=== PATIENT | male | born 1980 | race Caucasian/White ===

== ENCOUNTER 2018-03-27 04:12 | Emergency (ER) | payer MEDICAID, OTHER ==
[2018-03-27] MEDS: SILVER NITRATE SWAB TOP (05:09)
== END 2018-03-27 05:24 | disposition home or self-care (01) ==
LOC: FTE 04:12
DX: R58 Hemorrhage, not elsewhere classified (principal)
CPT/HCPCS: 99282; Z7502

== ENCOUNTER 2018-04-25 02:51 | Inpatient (IN) | payer MEDICAID ==
[2018-04-25 04:06] LABS: ADD MAN DIFF? NO
[2018-04-25 04:07] LABS: WHITE BLOOD COUNT 13.3 10^3/ul (4.8-10.8)
[2018-04-25 04:07] LABS: BASOPHIL # 0.1 10^3/ul (0.0-0.1); BASOPHILS % 0.5 % (0.0-2.0); HEMATOCRIT 28.3 % (42.0-52.0); HEMOGLOBIN 9.7 g/dl (14.0-18.0); LYMPHOCYTES # 1.6 10^3/ul (0.8-2.9); LYMPHOCYTES % 12.3 % (15.0-51.0); MEAN CORPUSCULAR HEMOGLOBIN 32.2 pg (29.0-33.0); MEAN CORPUSCULAR HGB CONC 34.3 g/dl (32.0-37.0); MEAN PLATELET VOLUME 11.7 fl (7.4-10.4); MONOCYTE # 1.2 10^3/ul (0.3-0.9); MONOCYTES % 8.9 % (0.0-11.0); NEUTROPHIL # 10.4 10^3/ul (1.6-7.5); NEUTROPHILS % 77.8 % (39.0-77.0); PLATELET COUNT 101 10^3/UL (140-415); POSITIVE DIFF @See below; RED BLOOD COUNT 3.01 10^6/ul (4.70-6.10); RED CELL DISTRIBUTION WIDTH 15.9 % (11.5-14.5)
[2018-04-25 04:27] LABS: ALANINE AMINOTRANSFERASE 42 IU/L (13-69); ALBUMIN 3.2 g/dl (3.3-4.9); ALBUMIN/GLOBULIN RATIO 0.94; ALKALINE PHOSPHATASE 116 IU/L (42-121); ANION GAP 9 (5-13); ASPARTATE AMINO TRANSFERASE 71 IU/L (15-46); BILIRUBIN,INDIRECT 1.2 mg/dl (0-1.1); BILIRUBIN,TOTAL 1.2 mg/dl (0.2-1.3); BLOOD UREA NITROGEN 24 mg/dl (7-20); CALCIUM 8.2 mg/dl (8.4-10.2); CARBON DIOXIDE 25 mmol/L (21-31); CHLORIDE 107 mmol/L (97-110); CREATININE 0.47 mg/dl (0.61-1.24); Estimated GFR > 60 mL/min (>60); GLUCOSE 144 mg/dl (70-220); INR 1.31; PROTIME 16.5 Sec (11.9-14.9); PT RATIO 1.3; SODIUM 141 mmol/L (135-144); TOTAL PROTEIN 6.6 g/dl (6.1-8.1)
[2018-04-25] MEDS: PANTOPRAZOLE 40 MG INJ IV ×2 (04:27→05:25)
[2018-04-25] MEDS: ONDANSETRON 4 MG INJ IV ×3 (04:27→06:16)
[2018-04-25 04:28] LABS: PARTIAL THROMBOPLASTIN TIME 35.5 Sec (23.0-35.0)
[2018-04-25] MEDS: CEFTRIAXONE 1 GM/50 ML (PMX) 50 ML IVPB (05:25)
[2018-04-25] MEDS ORDERED: ACETAMINOPHEN 650 MG SUPP PR (05:30)
[2018-04-25] MEDS ORDERED: morphine 2 MG INJ IV (05:30)
[2018-04-25] MEDS: OCTREOTIDE 50 MCG in SOD CHLORIDE 0.9% 25 ML IVPB (05:56)
[2018-04-25] MEDS: PANTOPRAZOLE IV 80 MG in SOD CHLORIDE 0.9% 100 ML IV ×2 (05:56→15:31)
[2018-04-25] MEDS: OCTREOTIDE 500 MCG in SOD CHLORIDE 0.9% 49 ML IV (06:05)
[2018-04-25] MEDS: SOD CHLORIDE 0.9% 500 ML IV ×2 (07:30→08:30)
[2018-04-25] MEDS: SOD CHLORIDE 0.9% 1,000 ML IV (08:30)
[2018-04-25] MEDS ORDERED: THIAMINE 200 MG INJ IM (09:00)
[2018-04-25 09:03] LABS: ADD MAN DIFF? NO
[2018-04-25 09:05] LABS: BASOPHIL # 0.1 10^3/ul (0.0-0.1); BASOPHILS % 0.4 % (0.0-2.0); HEMATOCRIT 25.5 % (42.0-52.0); HEMOGLOBIN 8.5 g/dl (14.0-18.0); LYMPHOCYTES % 11.7 % (15.0-51.0); MEAN CORPUSCULAR HGB CONC 33.3 g/dl (32.0-37.0); MEAN CORPUSCULAR VOLUME 95.9 fl (82.0-101.0); MEAN PLATELET VOLUME 12.5 fl (7.4-10.4); MONOCYTE # 1.2 10^3/ul (0.3-0.9); MONOCYTES % 7.3 % (0.0-11.0); NEUTROPHIL # 13.4 10^3/ul (1.6-7.5); NEUTROPHILS % 80.1 % (39.0-77.0); PLATELET COUNT 104 10^3/UL (140-415); RED BLOOD COUNT 2.66 10^6/ul (4.70-6.10); RED CELL DISTRIBUTION WIDTH 16.2 % (11.5-14.5)
[2018-04-25 09:05] LABS: WHITE BLOOD COUNT 16.8 10^3/ul (4.8-10.8)
[2018-04-25 09:08] LABS: HAAIG REFLEX REFLEX FILED
[2018-04-25 09:52] LABS: ETHANOL < 10.0 mg/dl (0-0)
[2018-04-25 12:20] LABS: HEPATITIS B SURFACE ANTIGEN NEGATIVE (NEGATIVE)
[2018-04-25 12:30] LABS: HIV 1&2 ANTIBODY NEGATIVE (NEGATIVE)
[2018-04-25 12:35] LABS: HEPATITIS B SURFACE ANTIBODY NEGATIVE (NEGATIVE)
[2018-04-25 12:37] LABS: HEPATITIS B CORE ANTIBODY NEGATIVE (NEGATIVE); HEPATITIS C VIRAL ANTIBODY NEGATIVE (NEGATIVE)
[2018-04-25 14:38] LABS: ADD MAN DIFF? NO
[2018-04-25 14:40] LABS: ABNORMAL IP MESSAGE 1; BASOPHIL # 0.1 10^3/ul (0.0-0.1); BASOPHILS % 0.4 % (0.0-2.0); EOSINOPHILS % 0.1 % (0.0-7.0); HEMATOCRIT 24.4 % (42.0-52.0); HEMOGLOBIN 8.1 g/dl (14.0-18.0); LYMPHOCYTES # 2.6 10^3/ul (0.8-2.9); LYMPHOCYTES % 15.7 % (15.0-51.0); MEAN CORPUSCULAR HEMOGLOBIN 31.8 pg (29.0-33.0); MEAN CORPUSCULAR HGB CONC 33.2 g/dl (32.0-37.0); MEAN CORPUSCULAR VOLUME 95.7 fl (82.0-101.0); MEAN PLATELET VOLUME 12.6 fl (7.4-10.4); NEUTROPHIL # 11.6 10^3/ul (1.6-7.5); NEUTROPHILS % 71.4 % (39.0-77.0); PLATELET COUNT 102 10^3/UL (140-415); POSITIVE DIFF @See below; RED BLOOD COUNT 2.55 10^6/ul (4.70-6.10); RED CELL DISTRIBUTION WIDTH 16.3 % (11.5-14.5)
[2018-04-25 14:40] LABS: WHITE BLOOD COUNT 16.3 10^3/ul (4.8-10.8)
[2018-04-25] MEDS: OCTREOTIDE 1 MG in DEXTROSE 5% 95 ML IV (15:30)
[2018-04-25] MEDS ORDERED: LIDOCAINE 100 MG SYRINGE (15:53)
[2018-04-25] MEDS ORDERED: FENTAnyl 50 MCG/ML VIAL (15:53)
[2018-04-25] MEDS ORDERED: PROPOFOL 40 ML (15:53)
[2018-04-25 17:31] LABS: TYPE AND SCREEN 1
[2018-04-25] MEDS: MULTIVITAMINS 10 ML, THIAMINE 100 MG, FOLIC ACID 1 MG in SOD CHLORIDE 0.9% 1,000 ML IVPB (18:28)
[2018-04-25] MEDS: SUCRALFATE 1 GM TAB PO ×2 (18:30→20:10)
[2018-04-25] MEDS: PHYTONADIONE 10 MG in DEXTROSE 5% 50 ML IVPB (19:09)
[2018-04-25 19:38] LABS: HEMATOCRIT 22.2 % (42.0-52.0); HEMOGLOBIN 7.5 g/dl (14.0-18.0)
[2018-04-25] MEDS: DEXTROSE 5%-0.45% NACL 1,000 ML IV (23:00)
[2018-04-26] MEDS: PANTOPRAZOLE IV 80 MG in SOD CHLORIDE 0.9% 100 ML IV ×3 (00:42→21:30)
[2018-04-26 00:51] LABS: WHITE BLOOD COUNT 12.8 10^3/ul (4.8-10.8)
[2018-04-26 00:51] LABS: ABNORMAL IP MESSAGE 1; HEMATOCRIT 20.7 % (42.0-52.0); MEAN CORPUSCULAR HEMOGLOBIN 32.7 pg (29.0-33.0); MEAN CORPUSCULAR HGB CONC 33.3 g/dl (32.0-37.0); MEAN CORPUSCULAR VOLUME 98.1 fl (82.0-101.0); MEAN PLATELET VOLUME 11.9 fl (7.4-10.4); PLATELET COUNT 95 10^3/UL (140-415); POSITIVE DIFF @See below; RED BLOOD COUNT 2.11 10^6/ul (4.70-6.10); RED CELL DISTRIBUTION WIDTH 16.8 % (11.5-14.5)
[2018-04-26 00:54] LABS: ADD MAN DIFF? YES; HEMOGLOBIN 6.9 g/dl (14.0-18.0)
[2018-04-26] MEDS: SOD CHLORIDE 0.9% 1,000 ML IV ×2 (01:10→21:10)
[2018-04-26 01:28] LABS: ANISOCYTOSIS 1+ (0-0); BAND NEUTROPHILS % (M) 8 % (0-4); BASOPHIL #M 0.1 10^3/ul (0.0-0.0); BASOPHILS % (M) 1 % (0-2); GIANT THROMBO% (M) 1 % (0-0); LYMPHOCYTES #M 2.6 10^3/ul (0.8-2.9); LYMPHOCYTES % (M) 21 % (15-51); MONOCYTE #M 0.3 10^3/ul (0.3-0.9); MONOCYTES % (M) 3 % (0-11); MYELOCYTES #M 0.1 10^3/ul (0.0-0.0); MYELOCYTES % (M) 1 % (0-0); PLATELET ESTIMATE DECREASED; POLYCHROMASIA 2+ (0-0); PROMYELOCYTES #M 0.1 10^3/ul (0-0); PROMYELOCYTES % (M) 1 % (0-0); SEG NEUT #M 8.4 10^3/ul (1.6-7.5); SEGMENTED NEUTROPHILS (M) % 65 % (39-77); SMUDGE%M 19 % (0-0)
[2018-04-26] MEDS: DEXTROSE 5%-0.45% NACL 1,000 ML IV ×3 (02:23→19:00)
[2018-04-26] MEDS: CEFTRIAXONE 1 GM/50 ML (PMX) 50 ML IVPB (05:48)
[2018-04-26 06:07] LABS: HEMATOCRIT 20.9 % (42.0-52.0)
[2018-04-26 06:09] LABS: HEMOGLOBIN 6.7 g/dl (14.0-18.0)
[2018-04-26] MEDS: MULTIVITAMINS 10 ML, THIAMINE 100 MG, FOLIC ACID 1 MG in SOD CHLORIDE 0.9% 1,000 ML IVPB ×2 (08:17→20:52)
[2018-04-26] MEDS: SUCRALFATE 1 GM TAB PO ×4 (08:18→21:30)
[2018-04-26] MEDS: DOCUSATE SODIUM 100 MG CAP PO ×2 (08:19→21:30)
[2018-04-26 08:38] LABS: ADD MAN DIFF? NO
[2018-04-26 08:43] LABS: ABNORMAL IP MESSAGE 1; BASOPHIL # 0.1 10^3/ul (0.0-0.1); BASOPHILS % 0.5 % (0.0-2.0); EOSINOPHILS # 0.2 10^3/ul (0.0-0.5); EOSINOPHILS % 1.6 % (0.0-7.0); HEMATOCRIT 21.7 % (42.0-52.0); LYMPHOCYTES # 2.3 10^3/ul (0.8-2.9); LYMPHOCYTES % 22.6 % (15.0-51.0); MEAN CORPUSCULAR HGB CONC 32.3 g/dl (32.0-37.0); MEAN CORPUSCULAR VOLUME 99.1 fl (82.0-101.0); MEAN PLATELET VOLUME 11.6 fl (7.4-10.4); MONOCYTE # 1.1 10^3/ul (0.3-0.9); MONOCYTES % 11.2 % (0.0-11.0); NEUTROPHIL # 6.4 10^3/ul (1.6-7.5); NEUTROPHILS % 63.7 % (39.0-77.0); POSITIVE DIFF @See below; RED BLOOD COUNT 2.19 10^6/ul (4.70-6.10); RED CELL DISTRIBUTION WIDTH 17.1 % (11.5-14.5)
[2018-04-26 08:43] LABS: WHITE BLOOD COUNT 10.1 10^3/ul (4.8-10.8)
[2018-04-26 08:51] LABS: PLATELET COUNT 83 10^3/UL (140-415)
[2018-04-26 09:56] LABS: ADD UMIC YES; UR ASCORBIC ACID NEGATIVE (NEGATIVE); UR BILIRUBIN (Dip) NEGATIVE (NEGATIVE); UR BLOOD (Dip) 2+ mg/dL (NEGATIVE); UR CLARITY CLEAR (CLEAR); UR COLOR YELLOW (YELLOW); UR GLUCOSE (Dip) NEGATIVE (NEGATIVE); UR KETONES (Dip) NEGATIVE (NEGATIVE); UR LEUKOCYTE ESTERASE (Dip) NEGATIVE Leu/ul (NEGATIVE); UR NITRITE (Dip) NEGATIVE (NEGATIVE); UR RBC > 182 /HPF (0-5); UR SPECIFIC GRAVITY (Dip) 1.023 (1.003-1.030); UR TOTAL PROTEIN (Dip) NEGATIVE (NEGATIVE); UR UROBILINOGEN (Dip) 1+ mg/dL (NEGATIVE); UR WBC 3 /HPF (0-5)
[2018-04-26] MEDS: OCTREOTIDE 1 MG in DEXTROSE 5% 95 ML IV (11:08)
[2018-04-26 12:12] LABS: HEMATOCRIT 21.2 % (42.0-52.0)
[2018-04-26 12:20] LABS: HEMOGLOBIN 6.9 g/dl (14.0-18.0)
[2018-04-26 13:34] LABS: IMMEDIATE SPIN CROSSMATCH 1 1
[2018-04-26 15:38] LABS: AMPHETAMINE/METHAMPHETAMINE Negative (NEGATIVE); BARBITURATES Negative (NEGATIVE); BENZODIAZEPINES Negative (NEGATIVE); CANNABINOIDS Negative (NEGATIVE); COCAINE Negative (NEGATIVE); OPIATES Negative (NEGATIVE)
[2018-04-26 18:18] LABS: ADD MAN DIFF? NO
[2018-04-26 18:19] LABS: WHITE BLOOD COUNT 9.3 10^3/ul (4.8-10.8)
[2018-04-26 18:19] LABS: ABNORMAL IP MESSAGE 1; BASOPHILS % 0.4 % (0.0-2.0); EOSINOPHILS # 0.2 10^3/ul (0.0-0.5); EOSINOPHILS % 2.5 % (0.0-7.0); LYMPHOCYTES # 2.3 10^3/ul (0.8-2.9); LYMPHOCYTES % 24.4 % (15.0-51.0); MEAN CORPUSCULAR HEMOGLOBIN 32.3 pg (29.0-33.0); MEAN CORPUSCULAR HGB CONC 33.3 g/dl (32.0-37.0); MEAN CORPUSCULAR VOLUME 96.8 fl (82.0-101.0); MEAN PLATELET VOLUME 11.8 fl (7.4-10.4); MONOCYTES % 10.5 % (0.0-11.0); NEUTROPHIL # 5.8 10^3/ul (1.6-7.5); NEUTROPHILS % 61.9 % (39.0-77.0); PLATELET COUNT 77 10^3/UL (140-415); POSITIVE DIFF @See below; RED BLOOD COUNT 2.48 10^6/ul (4.70-6.10); RED CELL DISTRIBUTION WIDTH 17.2 % (11.5-14.5)
[2018-04-26] MEDS: TAMSULOSIN (SR) 0.4 MG CAP PO (21:30)
[2018-04-27 01:02] LABS: HEMATOCRIT 24.3 % (42.0-52.0); HEMOGLOBIN 8.1 g/dl (14.0-18.0)
[2018-04-27] MEDS: DEXTROSE 5%-0.45% NACL 1,000 ML IV ×2 (05:05→17:39)
[2018-04-27] MEDS: CEFTRIAXONE 1 GM/50 ML (PMX) 50 ML IVPB (05:08)
[2018-04-27 05:43] LABS: INR 1.46; PARTIAL THROMBOPLASTIN TIME 37.7 Sec (23.0-35.0); PT RATIO 1.4
[2018-04-27 05:57] LABS: ALANINE AMINOTRANSFERASE 37 IU/L (13-69); ALBUMIN 2.4 g/dl (3.3-4.9); ALKALINE PHOSPHATASE 79 IU/L (42-121); ANION GAP 7 (5-13); ASPARTATE AMINO TRANSFERASE 66 IU/L (15-46); BLOOD UREA NITROGEN 13 mg/dl (7-20); CALCIUM 7.2 mg/dl (8.4-10.2); CARBON DIOXIDE 22 mmol/L (21-31); CHLORIDE 111 mmol/L (97-110); CREATININE 0.55 mg/dl (0.61-1.24); Estimated GFR > 60 mL/min (>60); GLUCOSE 93 mg/dl (70-220); POTASSIUM 3.5 mmol/L (3.5-5.1); SODIUM 140 mmol/L (135-144); TOTAL PROTEIN 5.4 g/dl (6.1-8.1)
[2018-04-27] MEDS: PANTOPRAZOLE IV 80 MG in SOD CHLORIDE 0.9% 100 ML IV ×2 (06:30→17:53)
[2018-04-27] MEDS: OCTREOTIDE 1 MG in DEXTROSE 5% 95 ML IV (06:30)
[2018-04-27 06:51] LABS: ADD MAN DIFF? NO
[2018-04-27 06:53] LABS: WHITE BLOOD COUNT 8.5 10^3/ul (4.8-10.8)
[2018-04-27 06:53] LABS: ABNORMAL IP MESSAGE 1; BASOPHIL # 0.1 10^3/ul (0.0-0.1); BASOPHILS % 0.7 % (0.0-2.0); EOSINOPHILS # 0.3 10^3/ul (0.0-0.5); EOSINOPHILS % 3.3 % (0.0-7.0); HEMATOCRIT 23.4 % (42.0-52.0); HEMOGLOBIN 7.7 g/dl (14.0-18.0); LYMPHOCYTES # 2.3 10^3/ul (0.8-2.9); LYMPHOCYTES % 26.9 % (15.0-51.0); MEAN CORPUSCULAR HEMOGLOBIN 32.1 pg (29.0-33.0); MEAN CORPUSCULAR HGB CONC 32.9 g/dl (32.0-37.0); MEAN CORPUSCULAR VOLUME 97.5 fl (82.0-101.0); MEAN PLATELET VOLUME 12.7 fl (7.4-10.4); MONOCYTE # 0.8 10^3/ul (0.3-0.9); MONOCYTES % 9.3 % (0.0-11.0); NEUTROPHILS % 59.4 % (39.0-77.0); PLATELET COUNT 71 10^3/UL (140-415); POSITIVE DIFF @See below; RED CELL DISTRIBUTION WIDTH 17.2 % (11.5-14.5)
[2018-04-27] MEDS: DOCUSATE SODIUM 100 MG CAP PO ×2 (08:53→20:24)
[2018-04-27] MEDS: SUCRALFATE 1 GM TAB PO ×4 (08:53→20:24)
[2018-04-27 12:20] LABS: HEMATOCRIT 24.3 % (42.0-52.0); HEMOGLOBIN 8.2 g/dl (14.0-18.0)
[2018-04-27] MEDS: SOD CHLORIDE 0.9% 1,000 ML IV (17:10)
[2018-04-27] MEDS: TAMSULOSIN (SR) 0.4 MG CAP PO (20:24)
[2018-04-28] MEDS: DEXTROSE 5%-0.45% NACL 1,000 ML IV ×2 (03:40→11:00)
[2018-04-28] MEDS: PANTOPRAZOLE IV 80 MG in SOD CHLORIDE 0.9% 100 ML IV (03:40)
[2018-04-28 05:32] LABS: ADD MAN DIFF? NO
[2018-04-28 05:44] LABS: ABNORMAL IP MESSAGE 1; BASOPHILS % 0.4 % (0.0-2.0); EOSINOPHILS # 0.3 10^3/ul (0.0-0.5); EOSINOPHILS % 3.6 % (0.0-7.0); HEMOGLOBIN 8.2 g/dl (14.0-18.0); LYMPHOCYTES # 2.2 10^3/ul (0.8-2.9); LYMPHOCYTES % 23.5 % (15.0-51.0); MEAN CORPUSCULAR HEMOGLOBIN 32.8 pg (29.0-33.0); MEAN CORPUSCULAR HGB CONC 34.2 g/dl (32.0-37.0); MEAN PLATELET VOLUME 12.7 fl (7.4-10.4); MONOCYTE # 0.9 10^3/ul (0.3-0.9); MONOCYTES % 9.7 % (0.0-11.0); NEUTROPHIL # 5.7 10^3/ul (1.6-7.5); NEUTROPHILS % 62.6 % (39.0-77.0); PLATELET COUNT 81 10^3/UL (140-415); POSITIVE DIFF @See below; RED CELL DISTRIBUTION WIDTH 16.2 % (11.5-14.5)
[2018-04-28 05:44] LABS: WHITE BLOOD COUNT 9.2 10^3/ul (4.8-10.8)
[2018-04-28] MEDS: CEFTRIAXONE 1 GM/50 ML (PMX) 50 ML IVPB (05:44)
[2018-04-28 05:56] LABS: INR 1.36; PT RATIO 1.3
[2018-04-28 05:57] LABS: PARTIAL THROMBOPLASTIN TIME 37.7 Sec (23.0-35.0)
[2018-04-28 06:04] LABS: ALANINE AMINOTRANSFERASE 38 IU/L (13-69); ALBUMIN 2.5 g/dl (3.3-4.9); ALBUMIN/GLOBULIN RATIO 0.75; ALKALINE PHOSPHATASE 105 IU/L (42-121); ANION GAP 7 (5-13); ASPARTATE AMINO TRANSFERASE 76 IU/L (15-46); BILIRUBIN,INDIRECT 0.9 mg/dl (0-1.1); BILIRUBIN,TOTAL 0.9 mg/dl (0.2-1.3); BLOOD UREA NITROGEN 8 mg/dl (7-20); CALCIUM 7.3 mg/dl (8.4-10.2); CARBON DIOXIDE 23 mmol/L (21-31); CHLORIDE 109 mmol/L (97-110); CREATININE 0.58 mg/dl (0.61-1.24); Estimated GFR > 60 mL/min (>60); GLUCOSE 104 mg/dl (70-220); POTASSIUM 3.2 mmol/L (3.5-5.1); SODIUM 139 mmol/L (135-144); TOTAL PROTEIN 5.8 g/dl (6.1-8.1)
[2018-04-28] MEDS: MULTIVITAMINS 10 ML, THIAMINE 100 MG, FOLIC ACID 1 MG in SOD CHLORIDE 0.9% 1,000 ML IVPB (08:26)
[2018-04-28] MEDS: SUCRALFATE 1 GM TAB PO (08:26)
[2018-04-28] MEDS: DOCUSATE SODIUM 100 MG CAP PO (08:26)
[2018-04-28] MEDS: POTASSIUM CHLORIDE (SR) 20 MEQ TAB PO (08:50)
[2018-04-28] MEDS ORDERED: PANTOPRAZOLE (EC) 40 MG TAB PO (18:00)
[2018-05-01 16:27] LABS: HEPATITIS B DELTA ANTIBODY NEGATIVE
== END 2018-04-28 12:45 | disposition home or self-care (01) | DRG 896 ==
LOC: PP2 04-27 11:30 → E/R 02:51 → ICU 05:06
PROC: 0DJ08ZZ Inspection of Upper Intestinal Tract, Via Natural or Artificial Opening Endoscopic (ICD-10-PCS; principal; 2018-04-25 12:40)
PROC: 6A550Z2 Pheresis of Platelets, Single (ICD-10-PCS; 2018-04-25 12:40)
PROC: 30233N1 Transfusion of Nonautologous Red Blood Cells into Peripheral Vein, Percutaneous Approach (ICD-10-PCS; 2018-04-25 12:40)
DX: F10.20 Alcohol dependence, uncomplicated (principal); I85.11 Secondary esophageal varices with bleeding; D68.9 Coagulation defect, unspecified; K70.0 Alcoholic fatty liver; D69.6 Thrombocytopenia, unspecified; D72.829 Elevated white blood cell count, unspecified; E80.6 Other disorders of bilirubin metabolism; E66.9 Obesity, unspecified; Z68.39 Body mass index [BMI] 39.0-39.9, adult; D64.9 Anemia, unspecified; R33.9 Retention of urine, unspecified; D50.0 Iron deficiency anemia secondary to blood loss (chronic)
CPT/HCPCS: 36415; 36430; 76705; 80053; 80307; 81001; 85014; 85018; 85025; 85610; 85730; 86644; 86692; 86703; 86704; 86706; 86708; 86709; 86803; 86850; 86900; 86901; 86920; 87081; 87340; 93005; 96374; 96375; 99291-25